=== PATIENT | male | born 1935 | race Caucasian/White ===

== ENCOUNTER 2017-01-07 11:26 | Emergency (ER) | payer OTHER, BC ==
[~2017-01-07] VITALS: Ht 180.3 cm; Wt 98.9 kg
[~2017-01-07 11:26] MED LIST: CIPR-261 PO; DOXE10CA2 PO; GABA600T PO; [UNRECOGNIZED DRUG - OTHER] PO; [UNRECOGNIZED DRUG - OTHER] PO
[2017-01-07 11:33] VITALS: BP 127/62; PULSE 85; RESP 15; TEMP 96.9; O2SAT 97
--- NOTE | 2017-01-07 11:40 | NUR ---
Patient to ER bed 2 to gown for evaluation. Side rails up. Report given to Domingo GALLEGOS.
--- NOTE | 2017-01-07 11:45 | NUR ---
Pt brought by partner, [email or web address], pt was sent from [facility] office for DVT, VS WNL, skin pink and warm, pt denies pain, no discoloration noted, skin pink and warm, cap refill <3, VSS.
--- NOTE | 2017-01-07 11:50 | NUR ---
ER at bedside examining patient.
[2017-01-07 12:00] LABS: BASOPHILS % (AUTO) 0.5 % (0.0-2.0); EOSINOPHILS # (AUTO) 0.2 K/uL (0.0-0.4); EOSINOPHILS % (AUTO) 3.4 % (0.0-4.0); HEMATOCRIT 43.8 % (36-54); HEMOGLOBIN 14.6 g/dL (14.0-18.0); LYMPHOCYTES # (AUTO) 1.2 K/uL (1.0-5.5); LYMPHOCYTES % (AUTO) 24.5 % (20.5-51.5); MEAN CORPUSCULAR HEMOGLOBIN 30 pg (27-31); MEAN CORPUSCULAR HGB CONC 33 % (32-36); MEAN CORPUSCULAR VOLUME 91 fL (79.0-98.0); MONOCYTES # (AUTO) 0.6 K/uL (0.0-1.0); MONOCYTES % (AUTO) 13.3 % (1.7-9.3); NEUTROPHILS # (AUTO) 2.8 K/uL (1.8-7.7); NEUTROPHILS % (AUTO) 58.3 % (40.0-70.0); PLATELET COUNT (AUTO) 220 K/uL (130-430); RED BLOOD CELL COUNT(AUTO) 4.82 MIL/uL (4.2-6.2); RED CELL DISTRIBUTION WIDTH 12.9 % (9.0-15.0); WHITE BLOOD COUNT (AUTO) 4.8 K/uL (4.8-10.8)
[2017-01-07 12:08] LABS: ANION GAP 1 (5-15); CALCIUM 9.1 mg/dL (8.4-11.0); CHLORIDE 103 mmol/L (98-107); CREATININE 1.05 mg/dL (0.55-1.30); GLUCOSE 111 mg/dL (70-99); POTASSIUM 3.8 mmol/L (3.5-5.1); SODIUM SERUM 139 mmol/L (136-145); UREA NITROGEN, BLOOD 19 mg/dL (8-21)
[2017-01-07 12:12] LABS: PROTHROMBIN TIME 10.5 SECS (9.5-12.5)
[2017-01-07 12:14] LABS: ALANINE AMINOTRANSFERASE 39 U/L (12-78); ASPARTATE AMINOTRANSFERASE 25 U/L (10-37); TOTAL BILIRUBIN 0.4 mg/dL (0.0-1.0); TOTAL PROTEIN, SERUM 7.3 g/dL (6.4-8.3)
[2017-01-07] MEDS ORDERED: FURO80TA86 PO (12:24)
--- NOTE | 2017-01-07 12:30 | NUR ---
Medication reconciliation completed with information provided by patient. Any prior medication reconciliation on file was reviewed and corrected.
--- NOTE | 2017-01-07 13:30 | NUR ---
Pt continues to deny CP, SOB or pain.
--- NOTE | 2017-01-07 15:00 | NUR ---
spoke with pt's PMD. POC is pt followup w/previously scheduled appt and outpatient medication .
--- NOTE | 2017-01-07 15:03 | NUR ---
Patient given written and verbal discharge instructions and verbalizes understanding. ER MD discussed with patient the results and treatment provided. Given copies of tests performed in ER. Patient in stable condition. ID arm band removed. Rx of XARELTO given. Patient educated on pain management and to follow up with PMD. Pain Scale 0. Opportunity for questions provided and answered.
[2017-01-07 15:06] VITALS: BP 128/60; PULSE 80; RESP 16; TEMP 97.4; O2SAT 97
== END 2017-01-07 15:06 | disposition home or self-care (01) ==
LOC: SED 11:26
DX: I82.401 Acute embolism and thrombosis of unspecified deep veins of right lower extremity (principal); Z88.1 Allergy status to other antibiotic agents; Z88.2 Allergy status to sulfonamides
CPT/HCPCS: 36415; 71010; 80053; 85025; 85610-TC; 85730-TC; 93005; 93971; 99285

== ENCOUNTER 2017-04-13 18:53 | Emergency (ER) | payer OTHER, BC ==
[~2017-04-13] VITALS: Ht 180.3 cm; Wt 97.5 kg
[~2017-04-13 18:53] MED LIST changes: -CIPR-261 PO; +FURO80TA86 PO
[2017-04-13 19:08] VITALS: BP_SYST 94
--- NOTE | 2017-04-13 19:12 | NUR ---
Pt placed to ER waiting room in stable condition.
--- NOTE | 2017-04-13 19:43 | NUR ---
Patient to ER bed 4 to gown for evaluation. Side rails up. Report given to Leslye GALLEGOS.
--- NOTE | 2017-04-13 19:45 | NUR ---
Patient reports possible foreign body in left eye with tearing and redness starting today. Denies any pain. No other complaints/injuries per patient or as noted.
--- NOTE | 2017-04-13 19:55 | NUR ---
ER at bedside examining patient.
[2017-04-13] MEDS ORDERED: ERYTHROMYCIN 0.5% EYE OINT 3.5 GM OP ONE (20:15)
[2017-04-13] MEDS ORDERED: PROPARACAINE (OPTHANINE 0.5%) 15 ML DROPS OP ONE (20:15)
--- NOTE | 2017-04-13 21:00 | NUR ---
Patient given written and verbal discharge instructions and verbalizes understanding. ER MD discussed with patient the results and treatment provided. Patient in stable condition. ID arm band removed. Rx of Erythromycin ointment given. Patient educated on pain management and to follow up with PMD. Pain Scale 0/10. Opportunity for questions provided and answered.
[2017-04-13 21:06] VITALS: BP_SYST 94
== END 2017-04-13 21:00 | disposition home or self-care (01) ==
LOC: SED 18:53
DX: H10.9 Unspecified conjunctivitis (principal); Z88.1 Allergy status to other antibiotic agents; Z88.2 Allergy status to sulfonamides; Z85.828 Personal history of other malignant neoplasm of skin
CPT/HCPCS: 99283

== ENCOUNTER 2017-05-07 09:37 | Outpatient (CLI) | payer OTHER, BC | END 2017-05-07 19:56 | disposition home or self-care (01) | LOC: SUS 09:37 | PROVIDERS: ATTEND Specialist | DX: I82.401 Acute embolism and thrombosis of unspecified deep veins of right lower extremity (principal) | CPT/HCPCS: 93971 ==

== ENCOUNTER 2017-08-14 09:24 | Emergency (ER) | payer OTHER, BC ==
[~2017-08-14] VITALS: Ht 180.3 cm; Wt 97.1 kg
[~2017-08-14 09:24] MED LIST changes: +CIPR-261 PO
[2017-08-14 09:28] VITALS: BP 100/56; PULSE 68; RESP 16; TEMP 96.6; O2SAT 97
[2017-08-14 10:37] VITALS: BP 105/61; PULSE 64; RESP 16; TEMP 97.2; O2SAT 98
== END 2017-08-14 10:37 | disposition home or self-care (01) ==
LOC: SED 09:24
DX: S93.505A Unspecified sprain of left lesser toe(s), initial encounter (principal); Z88.1 Allergy status to other antibiotic agents; Z85.828 Personal history of other malignant neoplasm of skin; X58.XXXA Exposure to other specified factors, initial encounter; Y93.89 Activity, other specified; Y92.89 Other specified places as the place of occurrence of the external cause; Y99.8 Other external cause status
CPT/HCPCS: 73630; 99284; J7030

== ENCOUNTER 2017-10-31 09:05 | Outpatient (CLI) | payer OTHER, BC ==
[~2017-10-31 09:05] MED LIST changes: -CIPR-261 PO
== END 2017-10-31 21:19 | disposition home or self-care (01) ==
LOC: SLB 09:05
PROVIDERS: ATTEND Specialist
DX: K52.9 Noninfective gastroenteritis and colitis, unspecified (principal); Z86.010 Personal history of colon polyps
CPT/HCPCS: 87045-TC; 87046; 87177

== ENCOUNTER 2018-03-19 10:46 | Emergency (ER) | payer OTHER, BC ==
[~2018-03-19] VITALS: Ht 180.3 cm; Wt 96.2 kg
[2018-03-19 10:46] VITALS: BP_SYST 141
[2018-03-19] MEDS ORDERED: COLCHICINE 0.6 MG TABLET PO ONE (11:15)
[2018-03-19 11:30] VITALS: BP_SYST 141
== END 2018-03-19 11:30 | disposition home or self-care (01) ==
LOC: SED 10:46
DX: M10.9 Gout, unspecified (principal); Z88.2 Allergy status to sulfonamides; Z88.1 Allergy status to other antibiotic agents; Z85.828 Personal history of other malignant neoplasm of skin
CPT/HCPCS: 99283

== ENCOUNTER 2018-10-27 09:19 | Emergency (ER) | payer OTHER, BC ==
[~2018-10-27] VITALS: Ht 180.3 cm; Wt 93.0 kg
[2018-10-27 09:25] VITALS: BP_SYST 140
[2018-10-27] MEDS ORDERED: ACETAMINOPHEN 500 MG TABLET PO ONE (09:45)
[2018-10-27 10:41] VITALS: BP_SYST 140
== END 2018-10-27 10:41 | disposition home or self-care (01) ==
LOC: SED 09:19
DX: S20.212A Contusion of left front wall of thorax, initial encounter (principal); Z85.828 Personal history of other malignant neoplasm of skin; Z88.1 Allergy status to other antibiotic agents; Z88.2 Allergy status to sulfonamides; Z88.5 Allergy status to narcotic agent; Z88.8 Allergy status to other drugs, medicaments and biological substances; Z79.899 Other long term (current) drug therapy; W01.0XXA Fall on same level from slipping, tripping and stumbling without subsequent striking against object, initial encounter; Y93.89 Activity, other specified; Y92.89 Other specified places as the place of occurrence of the external cause; Y99.8 Other external cause status
CPT/HCPCS: 71100; 99283

== ENCOUNTER 2019-07-27 05:35 | Emergency (ER) | payer OTHER, BC ==
[~2019-07-27] VITALS: Ht 162.6 cm; Wt 96.2 kg
[2019-07-27 05:40] VITALS: BP_SYST 154
--- NOTE | 2019-07-27 05:40 | NUR ---
Placed in room 05 . Placed on cardiac cath lab radiology technologist, blood pressure machine and pulse oximeter. To gown for exam. Side rails up.
--- NOTE | 2019-07-27 05:42 | NUR ---
Pt was given 324 mg of aspirin PO by medics and Nitro 0.4mg x1, pt denies chest pain at this time.
[2019-07-27] MEDS ORDERED: ASPIRIN 81 MG TAB.CHEW PO ONE (05:45)
--- NOTE | 2019-07-27 05:45 | NUR ---
Dr. Snatos bedside for Pt eval
--- NOTE | 2019-07-27 06:10 | NUR ---
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 No other complaints and or injuries noted. VSS no s/s of acute distress. Resting on gurney rails up
[2019-07-27 06:13] LABS: BASOPHILS # (AUTO) 0.1 K/uL (0.0-0.2); BASOPHILS % (AUTO) 0.4 % (0.0-2.0); EOSINOPHILS % (AUTO) 0.3 % (0.0-4.0); HEMOGLOBIN 14.5 g/dL (14.0-18.0); LYMPHOCYTES # (AUTO) 0.9 K/uL (1.0-5.5); MEAN CORPUSCULAR HEMOGLOBIN 33 pg (27-31); MEAN CORPUSCULAR HGB CONC 34 % (32-36); MEAN CORPUSCULAR VOLUME 98 fL (79.0-98.0); MONOCYTES # (AUTO) 0.9 K/uL (0.0-1.0); MONOCYTES % (AUTO) 6.5 % (1.7-9.3); NEUTROPHILS # (AUTO) 12.6 K/uL (1.8-7.7); NEUTROPHILS % (AUTO) 86.8 % (40.0-70.0); PLATELET COUNT (AUTO) 193 K/uL (130-430); RED BLOOD CELL COUNT(AUTO) 4.39 MIL/uL (4.2-6.2); RED CELL DISTRIBUTION WIDTH 13.9 % (9.0-15.0); WHITE BLOOD COUNT (AUTO) 14.5 K/uL (4.8-10.8)
[2019-07-27 06:26] LABS: ANION GAP 10 (5-15); CALCIUM 8.9 mg/dL (8.4-11.0); CHLORIDE 105 mmol/L (98-107); CREATININE 1.12 mg/dL (0.55-1.30); GLUCOSE 137 mg/dL (70-99); POTASSIUM 3.7 mmol/L (3.5-5.1); SODIUM SERUM 142 mmol/L (136-145); UREA NITROGEN, BLOOD 16 mg/dL (8-21)
--- NOTE | 2019-07-27 06:30 | NUR ---
Pt consented to having both IV with contrast studies. Paperwork in chart
[2019-07-27 06:33] LABS: ALANINE AMINOTRANSFERASE 28 U/L (12-78); ALBUMIN 3.5 g/dL (3.4-4.8); ASPARTATE AMINOTRANSFERASE 19 U/L (10-37); TOTAL BILIRUBIN 1.4 mg/dL (0.0-1.0)
[2019-07-27 06:44] LABS: INR 1.1 (0.80-1.20); PROTHROMBIN TIME 11.3 SECS (9.5-12.5)
--- NOTE | 2019-07-27 09:10 | NUR ---
Patient transported to radiology via hospital bed, accompanied by senior service technician.
--- NOTE | 2019-07-27 09:30 | NUR ---
Returns to ER department from radiology. Placed on laboratory monitor, blood pressure machine and pulse oximeter.
--- NOTE | 2019-07-27 10:00 | NUR ---
Patient given written and verbal discharge instructions and verbalizes understanding. ER Dr. Balderrama discussed with patient the results and treatment provided. Patient in stable condition. ID arm band removed. IV catheter removed intact and dressing applied, no active bleeding. No Rx given. Patient educated on pain management and to follow up with PMD. Pain Scale 0/10. Opportunity for questions provided and answered. Medication side effect fact sheet provided.
[2019-07-27] MEDS ORDERED: IOHEXOL 350 mgI/mL, 150 ML INFUS..BTL IV ONE (10:06)
[2019-07-27 11:21] VITALS: BP_SYST 145
== END 2019-07-27 11:21 | disposition home or self-care (01) ==
LOC: SED 05:35
DX: R07.89 Other chest pain (principal); R10.10 Upper abdominal pain, unspecified; F17.200 Nicotine dependence, unspecified, uncomplicated; Z88.1 Allergy status to other antibiotic agents; Z88.2 Allergy status to sulfonamides; Z88.5 Allergy status to narcotic agent; Z88.8 Allergy status to other drugs, medicaments and biological substances; Z85.828 Personal history of other malignant neoplasm of skin
CPT/HCPCS: 36415; 71275; 74175; 80053; 83880; 84484; 85025; 85379; 85610; 85730; 99284; Q9967

== ENCOUNTER 2020-01-17 09:35 | Emergency (ER) | payer OTHER, BC ==
[~2020-01-17] VITALS: Ht 180.3 cm; Wt 96.2 kg
--- NOTE | 2020-01-17 09:50 | NUR ---
PATIENT TO ER #3
[2020-01-17] MEDS ORDERED: RIVA20TA PO (09:58)
[2020-01-17] MEDS ORDERED: CHOL50004 PO (09:58)
[2020-01-17] MEDS ORDERED: CYAN250010 PO (09:58)
[2020-01-17] MEDS ORDERED: ALLO100T PO (09:58)
[2020-01-17] MEDS ORDERED: POTA20TA83 PO (09:58)
[2020-01-17 09:59] VITALS: BP_SYST 103
[2020-01-17] MEDS ORDERED: ALBUTEROL SULFATE 0.083% 2.5 MG/3 ML VIAL.NEB INH ONE (10:00)
[2020-01-17] MEDS ORDERED: PREDNISONE 20 MG TABLET PO ONE (10:00)
[2020-01-17] MEDS ORDERED: IPRATROPIUM BROM 0.5 MG/2.5 ML VIAL.NEB (ATROVENT) INH ONE (10:00)
--- NOTE | 2020-01-17 10:10 | NUR ---
Patient brought in self to ED with complaints of cough x 3 weeks. Patient reported to have been taking z-gerard and nasal spray with no relief. Patient also reported to have received the flu shot this season. Patient complains of discomfort on chest area when coughing but is not in any distress.
[2020-01-17 10:30] LABS: BASOPHILS % (AUTO) 0.9 % (0.0-2.0); EOSINOPHILS # (AUTO) 0.1 K/uL (0.0-0.4); EOSINOPHILS % (AUTO) 2.3 % (0.0-4.0); HEMATOCRIT 43.2 % (36-54); HEMOGLOBIN 14.5 g/dL (14.0-18.0); LYMPHOCYTES # (AUTO) 0.8 K/uL (1.0-5.5); LYMPHOCYTES % (AUTO) 22.6 % (20.5-51.5); MEAN CORPUSCULAR HEMOGLOBIN 33 pg (27-31); MEAN CORPUSCULAR HGB CONC 33 % (32-36); MEAN CORPUSCULAR VOLUME 97 fL (79.0-98.0); MONOCYTES # (AUTO) 0.7 K/uL (0.0-1.0); MONOCYTES % (AUTO) 19.3 % (1.7-9.3); NEUTROPHILS # (AUTO) 1.9 K/uL (1.8-7.7); NEUTROPHILS % (AUTO) 54.9 % (40.0-70.0); PLATELET COUNT (AUTO) 163 K/uL (130-430); RED BLOOD CELL COUNT(AUTO) 4.45 MIL/uL (4.2-6.2); RED CELL DISTRIBUTION WIDTH 13.2 % (9.0-15.0); WHITE BLOOD COUNT (AUTO) 3.4 K/uL (4.8-10.8)
[2020-01-17 10:36] LABS: ANION GAP 8 (5-15); CALCIUM 8.8 mg/dL (8.4-11.0); CHLORIDE 99 mmol/L (98-107); CREATININE 1.15 mg/dL (0.55-1.30); GLUCOSE 106 mg/dL (70-99); POTASSIUM 3.5 mmol/L (3.5-5.1); SODIUM SERUM 140 mmol/L (136-145); UREA NITROGEN, BLOOD 19 mg/dL (8-21)
[2020-01-17 10:46] LABS: ALANINE AMINOTRANSFERASE 51 U/L (12-78); ALBUMIN 3.6 g/dL (3.4-4.8); ASPARTATE AMINOTRANSFERASE 45 U/L (10-37); TOTAL BILIRUBIN 0.6 mg/dL (0.0-1.0)
[2020-01-17 11:43] VITALS: BP_SYST 116
--- NOTE | 2020-01-17 11:43 | NUR ---
Patient given written and verbal discharge instructions and verbalizes understanding. ER MD discussed with patient the results and treatment provided. Patient in stable condition. ID arm band removed. Rx of augmentin, albuterol, and prednisolone given. Patient educated on pain management and to follow up with PMD. Pain Scale 0/10.Opportunity for questions provided and answered. Medication side effect fact sheet provided.
[2020-01-17] MEDS ORDERED: NS 500 ML IV ONE (13:00)
== END 2020-01-17 11:43 | disposition home or self-care (01) ==
LOC: SED 09:35
DX: J44.9 Chronic obstructive pulmonary disease, unspecified (principal); H10.9 Unspecified conjunctivitis; Z88.1 Allergy status to other antibiotic agents; Z88.5 Allergy status to narcotic agent; Z88.8 Allergy status to other drugs, medicaments and biological substances; Z79.899 Other long term (current) drug therapy
CPT/HCPCS: 36415; 71045; 80053; 83880; 84484; 85025; 86710; 93005; 94640; 99285; J7512; J7613

== ENCOUNTER 2020-05-13 08:55 | Emergency (ER) | payer OTHER, BC ==
[~2020-05-13] VITALS: Ht 177.8 cm; Wt 94.3 kg
[~2020-05-13 08:55] MED LIST changes: +ALLO100T PO; +CHOL50004 PO; +CYAN250010 PO; -DOXE10CA2 PO; +POTA20TA83 PO; +RIVA20TA PO
[2020-05-13 09:00] VITALS: BP_SYST 129
--- NOTE | 2020-05-13 09:10 | NUR ---
BROUGHT BACK TO BED #6 AND TRIAGED, REPORT GIVEN TO JULIAN
--- NOTE | 2020-05-13 09:51 | NUR ---
ER Dr. Obregon at bedside examining patient.
--- NOTE | 2020-05-13 11:05 | NUR ---
Patient transported to radiology via wheelchair, accompanied by staff.
--- NOTE | 2020-05-13 12:25 | NUR ---
Patient given written and verbal discharge instructions and verbalizes understanding. ER MD discussed with patient the results and treatment provided. Patient in stable condition. ID arm band removed. No prescriptions given. Patient educated on pain management and to follow up with PMD. Pain Scale 0. Opportunity for questions provided and answered. Medication side effect fact sheet provided.
[2020-05-13 12:26] VITALS: BP_SYST 129
== END 2020-05-13 12:25 | disposition home or self-care (01) ==
LOC: SED 08:55
DX: S20.212A Contusion of left front wall of thorax, initial encounter (principal); S00.511A Abrasion of lip, initial encounter; R51 Headache; M25.562 Pain in left knee; M79.642 Pain in left hand; I71.9 Aortic aneurysm of unspecified site, without rupture; Z88.1 Allergy status to other antibiotic agents; Z88.2 Allergy status to sulfonamides; Z88.5 Allergy status to narcotic agent; Z79.899 Other long term (current) drug therapy; Z85.828 Personal history of other malignant neoplasm of skin; W18.39XA Other fall on same level, initial encounter; Y93.89 Activity, other specified; Y92.89 Other specified places as the place of occurrence of the external cause; Y99.8 Other external cause status
CPT/HCPCS: 70450-TC; 71250-TC; 99285

== ENCOUNTER 2020-09-06 09:06 | Emergency (ER) | payer OTHER, BC ==
[~2020-09-06] VITALS: Ht 180.3 cm; Wt 95.3 kg
[2020-09-06 09:15] VITALS: BP_SYST 115
--- NOTE | 2020-09-06 09:15 | NUR ---
Patient to ER bed 06 to gown for evaluation. Side rails up.
--- NOTE | 2020-09-06 09:16 | NUR ---
Patient arrived in the ED c/o REDNESS, SWELLING AND TENDER TO TOUCH ON THE RIGHT LOWER LEG for the last 2 WEEKS. Denied any chest pain or shortness of breath. Denied any fevers, chills, nausea or vomiting. Patient is alert and oriented x4, respirations even and unlabored, speaking in full sentences, and ambulating with a steady gait. VSS, pain level 76/10. Informed of the approximate wait time. Instructed to notify ED staff for any changes in condition or worsening of symptoms while waiting to be seen by an ED provider. Patient verbalized understanding.
--- NOTE | 2020-09-06 09:53 | NUR ---
ER Dr. Naik at bedside examining patient.
--- NOTE | 2020-09-06 10:07 | NUR ---
Patient given written and verbal discharge instructions and verbalizes understanding. ER MD discussed with patient the results and treatment provided. Patient in stable condition. ID arm band removed. Rx of Clindamycin given. Patient educated on pain management and to follow up with PMD. Pain Scale 0/10. Opportunity for questions provided and answered. Medication side effect fact sheet provided.
[2020-09-06 10:08] VITALS: BP_SYST 115
== END 2020-09-06 10:07 | disposition home or self-care (01) ==
LOC: SED 09:06
DX: L03.115 Cellulitis of right lower limb (principal); F17.210 Nicotine dependence, cigarettes, uncomplicated; Z85.828 Personal history of other malignant neoplasm of skin; Z79.899 Other long term (current) drug therapy; Z88.1 Allergy status to other antibiotic agents; Z88.2 Allergy status to sulfonamides; Z88.6 Allergy status to analgesic agent
CPT/HCPCS: 99283

== ENCOUNTER 2020-11-17 09:30 | Outpatient (CLI) | payer OTHER, BC | END 2020-11-17 20:30 | disposition home or self-care (01) | LOC: SCT 09:30 | DX: I71.2 Thoracic aortic aneurysm, without rupture (principal) | CPT/HCPCS: 71250-TC; 76376 ==

== ENCOUNTER 2020-11-20 13:16 | Emergency (ER) | payer OTHER, BC ==
[~2020-11-20] VITALS: Ht 177.8 cm; Wt 94.3 kg
[2020-11-20 13:20] VITALS: BP_SYST 122
--- NOTE | 2020-11-20 13:43 | NUR ---
TRIAGED IN TENT
--- NOTE | 2020-11-20 14:35 | NUR ---
DR. COCHRAN EXAMINING PT
[2020-11-20 15:25] VITALS: BP_SYST 122
--- NOTE | 2020-11-20 15:25 | NUR ---
Patient given written and verbal discharge instructions and verbalizes understanding. ER MD discussed with patient the results and treatment provided. Patient in stable condition. ID arm band removed. Rx of FLOMAX given. Patient educated on pain management and to follow up with PMD. Pain Scale 0 Opportunity for questions provided and answered. Medication side effect fact sheet provided.
== END 2020-11-20 15:25 | disposition home or self-care (01) ==
LOC: SED 13:16
DX: R31.9 Hematuria, unspecified (principal); Z88.1 Allergy status to other antibiotic agents; Z88.5 Allergy status to narcotic agent; Z79.899 Other long term (current) drug therapy
CPT/HCPCS: 81002; 99283

== ENCOUNTER 2021-03-12 08:14 | Inpatient (IN) | payer OTHER, BC ==
[~2021-03-12] VITALS: Ht 177.8 cm; Wt 95.3 kg
[2021-03-12 08:14] VITALS: BP_SYST 111
[~2021-03-12 08:14] MED LIST changes: +HYDR-3917 PO
[2021-03-12] MEDS ORDERED: VANCOMYCIN HCL 1 MG in D5W 250 ML IV ONE (08:45)
[2021-03-12] MEDS ORDERED: NS 500 ML IV SCH (08:45)
[2021-03-12] MEDS ORDERED: VANCOMYCIN HCL 1000 MG/VIAL IV ONE (08:55)
[2021-03-12 09:06] LABS: BASOPHILS # (AUTO) 0.2 K/uL (0.0-0.2); BASOPHILS % (AUTO) 2.6 % (0.0-2.0); EOSINOPHILS # (AUTO) 0.1 K/uL (0.0-0.4); EOSINOPHILS % (AUTO) 1.5 % (0.0-4.0); HEMATOCRIT 43.7 % (36-54); HEMOGLOBIN 14.6 g/dL (14.0-18.0); LYMPHOCYTES # (AUTO) 0.8 K/uL (1.0-5.5); LYMPHOCYTES % (AUTO) 11.7 % (20.5-51.5); MEAN CORPUSCULAR HEMOGLOBIN 33 pg (27-31); MEAN CORPUSCULAR HGB CONC 34 % (32-36); MEAN CORPUSCULAR VOLUME 98 fL (79.0-98.0); MONOCYTES # (AUTO) 0.6 K/uL (0.0-1.0); MONOCYTES % (AUTO) 8.9 % (1.7-9.3); NEUTROPHILS # (AUTO) 5.2 K/uL (1.8-7.7); NEUTROPHILS % (AUTO) 75.3 % (40.0-70.0); PLATELET COUNT (AUTO) 257 K/uL (130-430); RED BLOOD CELL COUNT(AUTO) 4.46 MIL/uL (4.2-6.2); RED CELL DISTRIBUTION WIDTH 13.3 % (9.0-15.0); WHITE BLOOD COUNT (AUTO) 6.9 K/uL (4.8-10.8)
[2021-03-12 09:25] LABS: ANION GAP 10 (5-15); CALCIUM 9.1 mg/dL (8.4-11.0); CHLORIDE 101 mmol/L (98-107); CREATININE 1.09 mg/dL (0.55-1.30); GLUCOSE 108 mg/dL (70-99); POTASSIUM 3.2 mmol/L (3.5-5.1); SODIUM SERUM 140 mmol/L (136-145); UREA NITROGEN, BLOOD 21 mg/dL (8-21)
[2021-03-12 09:30] LABS: INR 1.3 (0.80-1.20); PROTHROMBIN TIME 13.5 SECS (9.5-12.5)
[2021-03-12 09:31] LABS: ALANINE AMINOTRANSFERASE 24 U/L (12-78); ALBUMIN 3.5 g/dL (3.4-4.8); ASPARTATE AMINOTRANSFERASE 19 U/L (10-37); TOTAL BILIRUBIN 1.1 mg/dL (0.0-1.0)
[2021-03-12 09:37] LABS: C-REACTIVE PROTEIN QUANT 7.4 mg/dL (0-0.5)
[2021-03-12 09:39] LABS: ERYTHROCYTE SEDIMENTATION RATE 17 MM/HR (0-15)
[2021-03-12] MEDS ORDERED: CEFEPIME 2 GM in D5W 100 ML IV ONE (10:45)
[2021-03-12] MEDS ORDERED: KCL 10 mEq in 50 mL (PREMIX) 50 ML IV ONE (13:30)
[2021-03-12] MEDS ORDERED: PROPOFOL 200MG/ 20ML VIAL (DIPRIVAN) IV ONE (14:40)
[2021-03-12] MEDS ORDERED: SEVOFLURANE 15 MIN GAS INH ONE (14:40)
[2021-03-12] MEDS ORDERED: KETOROLAC TROMETHAMINE 30 MG VIAL IVP ONE (14:40)
[2021-03-12] MEDS ORDERED: NS IRRIG SOLN 1000 ML IR ONE (14:40)
[2021-03-12] MEDS ORDERED: ONDANSETRON HCL 4 MG/2 ML VIAL IVP ONE (14:40)
[2021-03-12] MEDS ORDERED: D5LR 1,000 ML IV.SOLN IV ONE (14:40)
[2021-03-12 15:18] VITALS: BP_SYST 114
[2021-03-12] MEDS ORDERED: ONDANSETRON HCL 4 MG/2 ML VIAL IVP PRN (17:45)
[2021-03-12] MEDS ORDERED: NALOXONE HCL 0.4 MG/ML AMP (NARCAN) IVP PRN ×2 (17:45)
[2021-03-12] MEDS ORDERED: HYDROcodone/ACETAMIN 10-325 MG TAB PO PRN (17:45)
[2021-03-12] MEDS ORDERED: HYDROcodone/ACETAMIN 5-325 MG TAB (NORCO/ VICODIN) PO PRN (17:45)
[2021-03-12] MEDS ORDERED: LORazepam 2 MG/ML VIAL IVP PRN (17:45)
[2021-03-12 20:18] VITALS: BP_SYST 144
[2021-03-12] MEDS ORDERED: GABAPENTIN 300 MG CAPSULE PO ONE (20:30)
[2021-03-12] MEDS: prednisoLONE 1% OPHTHALMIC SUSPN 5 ML OP SCH (21:00)
[2021-03-12] MEDS: CHOLECALCIFEROL (VITAMIN D3) 5,000 UNIT TABLET PO SCH (21:23)
[2021-03-12] MEDS: NORMAL SALINE 5 ML DISP.SYRIN IVF SCH (21:24)
[2021-03-13 00:12] VITALS: BP_SYST 122
[2021-03-13] MEDS: NORMAL SALINE 5 ML DISP.SYRIN IVF SCH ×3 (05:43→22:21)
[2021-03-13 06:28] LABS: BASOPHILS % (AUTO) 0.6 % (0.0-2.0); EOSINOPHILS # (AUTO) 0.2 K/uL (0.0-0.4); EOSINOPHILS % (AUTO) 3.6 % (0.0-4.0); HEMATOCRIT 37.5 % (36-54); HEMOGLOBIN 12.5 g/dL (14.0-18.0); LYMPHOCYTES % (AUTO) 17.4 % (20.5-51.5); MEAN CORPUSCULAR HEMOGLOBIN 33 pg (27-31); MEAN CORPUSCULAR HGB CONC 33 % (32-36); MEAN CORPUSCULAR VOLUME 98 fL (79.0-98.0); MONOCYTES # (AUTO) 0.7 K/uL (0.0-1.0); MONOCYTES % (AUTO) 12.5 % (1.7-9.3); NEUTROPHILS # (AUTO) 3.9 K/uL (1.8-7.7); NEUTROPHILS % (AUTO) 65.9 % (40.0-70.0); PLATELET COUNT (AUTO) 230 K/uL (130-430); RED BLOOD CELL COUNT(AUTO) 3.81 MIL/uL (4.2-6.2); RED CELL DISTRIBUTION WIDTH 13.2 % (9.0-15.0); WHITE BLOOD COUNT (AUTO) 5.9 K/uL (4.8-10.8)
[2021-03-13 06:44] LABS: ALANINE AMINOTRANSFERASE 20 U/L (12-78); ALBUMIN 2.7 g/dL (3.4-4.8); ANION GAP 7 (5-15); ASPARTATE AMINOTRANSFERASE 20 U/L (10-37); CALCIUM 8.8 mg/dL (8.4-11.0); CHLORIDE 105 mmol/L (98-107); CREATININE 0.98 mg/dL (0.55-1.30); GLUCOSE 93 mg/dL (70-99); PHOSPHORUS 3.7 mg/dL (2.7-4.5); POTASSIUM 3.7 mmol/L (3.5-5.1); SODIUM SERUM 140 mmol/L (136-145); TOTAL BILIRUBIN 0.8 mg/dL (0.0-1.0); UREA NITROGEN, BLOOD 18 mg/dL (8-21)
[2021-03-13 08:00] VITALS: BP_SYST 107
[2021-03-13] MEDS ORDERED: GABAPENTIN 300 MG CAPSULE PO SCH (09:00)
[2021-03-13] MEDS: LORATADINE 10 MG TABLET PO SCH (09:09)
[2021-03-13] MEDS: POTASSIUM CHLORIDE 20 MEQ TAB.PRT.SR PO SCH (09:10)
[2021-03-13] MEDS: CYANOCOBALAMIN 1000 mCg TABLET PO SCH (09:10)
[2021-03-13] MEDS: CEFEPIME 2 GM in D5W 100 ML IV SCH (09:10)
[2021-03-13] MEDS: FUROSEMIDE 80 MG TABLET PO SCH (09:10)
[2021-03-13] MEDS: ALLOPURINOL 100 MG TABLET (ZYLOPRIM) PO SCH (09:10)
[2021-03-13 14:10] VITALS: BP_SYST 97
[2021-03-13 16:00] VITALS: BP_SYST 108
[2021-03-13] MEDS: ACETAMINOPHEN 325 MG TABLET PO PRN ×2 (16:28→17:58)
[2021-03-13] MEDS: RIVAROXABAN 10 MG TABLET PO SCH (17:59)
[2021-03-13 21:00] VITALS: BP_SYST 125
[2021-03-13] MEDS: CHOLECALCIFEROL (VITAMIN D3) 5,000 UNIT TABLET PO SCH (22:19)
[2021-03-13] MEDS: GABAPENTIN 300 MG CAPSULE PO SCH (22:19)
[2021-03-13] MEDS: prednisoLONE 1% OPHTHALMIC SUSPN 5 ML OP SCH (22:20)
[2021-03-14 00:24] VITALS: BP_SYST 112
[2021-03-14] MEDS ORDERED: OXYMETAZOLINE HCL 0.05% NASAL SPRAY NS PRN (02:00)
[2021-03-14] MEDS: NORMAL SALINE 5 ML DISP.SYRIN IVF SCH ×3 (06:21→20:57)
[2021-03-14 06:24] LABS: BASOPHILS % (AUTO) 0.5 % (0.0-2.0); EOSINOPHILS # (AUTO) 0.2 K/uL (0.0-0.4); EOSINOPHILS % (AUTO) 4.5 % (0.0-4.0); HEMOGLOBIN 13.1 g/dL (14.0-18.0); LYMPHOCYTES # (AUTO) 1.2 K/uL (1.0-5.5); LYMPHOCYTES % (AUTO) 24.2 % (20.5-51.5); MEAN CORPUSCULAR HEMOGLOBIN 33 pg (27-31); MEAN CORPUSCULAR HGB CONC 34 % (32-36); MEAN CORPUSCULAR VOLUME 98 fL (79.0-98.0); MONOCYTES # (AUTO) 0.8 K/uL (0.0-1.0); MONOCYTES % (AUTO) 15.6 % (1.7-9.3); NEUTROPHILS # (AUTO) 2.8 K/uL (1.8-7.7); NEUTROPHILS % (AUTO) 55.2 % (40.0-70.0); PLATELET COUNT (AUTO) 240 K/uL (130-430); RED BLOOD CELL COUNT(AUTO) 3.96 MIL/uL (4.2-6.2)
[2021-03-14 06:39] LABS: ANION GAP 5 (5-15); CALCIUM 8.9 mg/dL (8.4-11.0); CHLORIDE 106 mmol/L (98-107); CREATININE 1.07 mg/dL (0.55-1.30); GLUCOSE 100 mg/dL (70-99); POTASSIUM 3.7 mmol/L (3.5-5.1); SODIUM SERUM 143 mmol/L (136-145); UREA NITROGEN, BLOOD 19 mg/dL (8-21)
[2021-03-14 07:15] LABS: ERYTHROCYTE SEDIMENTATION RATE 13 MM/HR (0-15)
[2021-03-14 08:00] VITALS: BP_SYST 109
[2021-03-14] MEDS: FUROSEMIDE 80 MG TABLET PO SCH ×2 (09:00→09:26)
[2021-03-14] MEDS: FLUTICASONE PROPIONATE 50 mCg/SPRAY 16 GM NS SCH (09:00)
[2021-03-14] MEDS: CEFEPIME 2 GM in D5W 100 ML IV SCH (09:25)
[2021-03-14] MEDS: ALLOPURINOL 100 MG TABLET (ZYLOPRIM) PO SCH (09:26)
[2021-03-14] MEDS: POTASSIUM CHLORIDE 20 MEQ TAB.PRT.SR PO SCH (09:26)
[2021-03-14] MEDS: LORATADINE 10 MG TABLET PO SCH (09:27)
[2021-03-14 11:20] VITALS: BP_SYST 106
[2021-03-14 15:15] VITALS: BP_SYST 105
[2021-03-14] MEDS: RIVAROXABAN 10 MG TABLET PO SCH (17:02)
[2021-03-14 20:40] VITALS: BP_SYST 122
[2021-03-14] MEDS: prednisoLONE 1% OPHTHALMIC SUSPN 5 ML OP SCH (20:51)
[2021-03-14] MEDS: GABAPENTIN 300 MG CAPSULE PO SCH (20:53)
[2021-03-14] MEDS: CHOLECALCIFEROL (VITAMIN D3) 5,000 UNIT TABLET PO SCH (20:53)
[2021-03-15 00:10] VITALS: BP_SYST 99
[2021-03-15] MEDS: NORMAL SALINE 5 ML DISP.SYRIN IVF SCH ×3 (06:45→21:16)
[2021-03-15 07:09] LABS: BASOPHILS # (AUTO) 0.1 K/uL (0.0-0.2); EOSINOPHILS # (AUTO) 0.3 K/uL (0.0-0.4); EOSINOPHILS % (AUTO) 5.2 % (0.0-4.0); HEMATOCRIT 37.8 % (36-54); HEMOGLOBIN 12.6 g/dL (14.0-18.0); LYMPHOCYTES # (AUTO) 1.3 K/uL (1.0-5.5); LYMPHOCYTES % (AUTO) 24.6 % (20.5-51.5); MEAN CORPUSCULAR HEMOGLOBIN 33 pg (27-31); MEAN CORPUSCULAR HGB CONC 33 % (32-36); MEAN CORPUSCULAR VOLUME 98 fL (79.0-98.0); MONOCYTES # (AUTO) 0.7 K/uL (0.0-1.0); MONOCYTES % (AUTO) 12.3 % (1.7-9.3); NEUTROPHILS % (AUTO) 56.9 % (40.0-70.0); PLATELET COUNT (AUTO) 237 K/uL (130-430); RED BLOOD CELL COUNT(AUTO) 3.86 MIL/uL (4.2-6.2); RED CELL DISTRIBUTION WIDTH 13.1 % (9.0-15.0); WHITE BLOOD COUNT (AUTO) 5.3 K/uL (4.8-10.8)
[2021-03-15 07:30] LABS: ANION GAP 8 (5-15); CALCIUM 8.8 mg/dL (8.4-11.0); CHLORIDE 107 mmol/L (98-107); CREATININE 1.06 mg/dL (0.55-1.30); GLUCOSE 97 mg/dL (70-99); POTASSIUM 3.9 mmol/L (3.5-5.1); SODIUM SERUM 146 mmol/L (136-145); UREA NITROGEN, BLOOD 18 mg/dL (8-21)
[2021-03-15 08:00] VITALS: BP_SYST 116
[2021-03-15 08:37] LABS: ERYTHROCYTE SEDIMENTATION RATE 14 MM/HR (0-15)
[2021-03-15] MEDS: CYANOCOBALAMIN 1000 mCg TABLET PO SCH (08:59)
[2021-03-15] MEDS: LORATADINE 10 MG TABLET PO SCH (08:59)
[2021-03-15] MEDS: ALLOPURINOL 100 MG TABLET (ZYLOPRIM) PO SCH (08:59)
[2021-03-15] MEDS: CEFEPIME 2 GM in D5W 100 ML IV SCH (09:00)
[2021-03-15] MEDS: POTASSIUM CHLORIDE 20 MEQ TAB.PRT.SR PO SCH (09:00)
[2021-03-15] MEDS: FUROSEMIDE 80 MG TABLET PO SCH (09:00)
[2021-03-15] MEDS: FLUTICASONE PROPIONATE 50 mCg/SPRAY 16 GM NS SCH (09:00)
[2021-03-15 09:21] LABS: C-REACTIVE PROTEIN QUANT 1.9 mg/dL (0-0.5)
[2021-03-15 12:00] VITALS: BP_SYST 95
[2021-03-15] MEDS ORDERED: fentaNYL CITRATE/PF 100 MCG/2 ML AMP IVP PRN (15:30)
[2021-03-15 16:11] VITALS: BP_SYST 102
[2021-03-15] MEDS: RIVAROXABAN 10 MG TABLET PO SCH (17:56)
[2021-03-15 20:00] VITALS: BP_SYST 96
[2021-03-15] MEDS: GABAPENTIN 300 MG CAPSULE PO SCH (21:10)
[2021-03-15] MEDS: CHOLECALCIFEROL (VITAMIN D3) 5,000 UNIT TABLET PO SCH (21:13)
[2021-03-15] MEDS: prednisoLONE 1% OPHTHALMIC SUSPN 5 ML OP SCH (21:15)
[2021-03-16] MEDS: NORMAL SALINE 5 ML DISP.SYRIN IVF SCH ×3 (05:34→21:35)
[2021-03-16 06:44] LABS: BASOPHILS % (AUTO) 0.6 % (0.0-2.0); EOSINOPHILS # (AUTO) 0.3 K/uL (0.0-0.4); EOSINOPHILS % (AUTO) 5.2 % (0.0-4.0); HEMATOCRIT 37.9 % (36-54); HEMOGLOBIN 12.5 g/dL (14.0-18.0); LYMPHOCYTES # (AUTO) 1.2 K/uL (1.0-5.5); LYMPHOCYTES % (AUTO) 21.4 % (20.5-51.5); MEAN CORPUSCULAR HEMOGLOBIN 33 pg (27-31); MEAN CORPUSCULAR HGB CONC 33 % (32-36); MEAN CORPUSCULAR VOLUME 99 fL (79.0-98.0); MONOCYTES # (AUTO) 0.7 K/uL (0.0-1.0); MONOCYTES % (AUTO) 12.8 % (1.7-9.3); NEUTROPHILS # (AUTO) 3.2 K/uL (1.8-7.7); PLATELET COUNT (AUTO) 239 K/uL (130-430); RED BLOOD CELL COUNT(AUTO) 3.82 MIL/uL (4.2-6.2); RED CELL DISTRIBUTION WIDTH 13.3 % (9.0-15.0); WHITE BLOOD COUNT (AUTO) 5.4 K/uL (4.8-10.8)
[2021-03-16 08:00] VITALS: BP_SYST 108
[2021-03-16 08:35] LABS: ERYTHROCYTE SEDIMENTATION RATE 13 MM/HR (0-15)
[2021-03-16 08:39] LABS: ANION GAP 6 (5-15); CALCIUM 9.1 mg/dL (8.4-11.0); CHLORIDE 108 mmol/L (98-107); CREATININE 1.06 mg/dL (0.55-1.30); GLUCOSE 99 mg/dL (70-99); POTASSIUM 4.6 mmol/L (3.5-5.1); SODIUM SERUM 145 mmol/L (136-145); UREA NITROGEN, BLOOD 18 mg/dL (8-21)
[2021-03-16] MEDS: FLUTICASONE PROPIONATE 50 mCg/SPRAY 16 GM NS SCH (09:00)
[2021-03-16] MEDS: ALLOPURINOL 100 MG TABLET (ZYLOPRIM) PO SCH (09:25)
[2021-03-16] MEDS: LORATADINE 10 MG TABLET PO SCH (09:25)
[2021-03-16] MEDS: POTASSIUM CHLORIDE 20 MEQ TAB.PRT.SR PO SCH (09:25)
[2021-03-16] MEDS: CEFEPIME 2 GM in D5W 100 ML IV SCH (09:26)
[2021-03-16] MEDS: FUROSEMIDE 80 MG TABLET PO SCH (09:26)
[2021-03-16 09:37] LABS: C-REACTIVE PROTEIN QUANT 1.3 mg/dL (0-0.5)
[2021-03-16 12:29] VITALS: BP_SYST 119
[2021-03-16 16:36] VITALS: BP_SYST 126
[2021-03-16] MEDS: RIVAROXABAN 10 MG TABLET PO SCH (17:47)
[2021-03-16] MEDS: ACETAMINOPHEN 325 MG TABLET PO PRN (19:52)
[2021-03-16 19:55] VITALS: BP_SYST 107
[2021-03-16] MEDS ORDERED: DOCUSATE SODIUM 100 MG CAPSULE PO SCH (21:00)
[2021-03-16] MEDS: GABAPENTIN 300 MG CAPSULE PO SCH (21:32)
[2021-03-16] MEDS: CHOLECALCIFEROL (VITAMIN D3) 5,000 UNIT TABLET PO SCH (21:32)
[2021-03-16] MEDS: prednisoLONE 1% OPHTHALMIC SUSPN 5 ML OP SCH (21:33)
[2021-03-17 02:22] VITALS: BP_SYST 90
[2021-03-17] MEDS: NORMAL SALINE 5 ML DISP.SYRIN IVF SCH (05:37)
[2021-03-17 06:28] LABS: BASOPHILS % (AUTO) 0.9 % (0.0-2.0); EOSINOPHILS # (AUTO) 0.4 K/uL (0.0-0.4); EOSINOPHILS % (AUTO) 7.3 % (0.0-4.0); HEMOGLOBIN 12.4 g/dL (14.0-18.0); LYMPHOCYTES # (AUTO) 1.4 K/uL (1.0-5.5); LYMPHOCYTES % (AUTO) 26.7 % (20.5-51.5); MEAN CORPUSCULAR HEMOGLOBIN 33 pg (27-31); MEAN CORPUSCULAR HGB CONC 34 % (32-36); MEAN CORPUSCULAR VOLUME 98 fL (79.0-98.0); MONOCYTES # (AUTO) 0.8 K/uL (0.0-1.0); MONOCYTES % (AUTO) 15.5 % (1.7-9.3); NEUTROPHILS # (AUTO) 2.5 K/uL (1.8-7.7); NEUTROPHILS % (AUTO) 49.6 % (40.0-70.0); PLATELET COUNT (AUTO) 240 K/uL (130-430); RED BLOOD CELL COUNT(AUTO) 3.77 MIL/uL (4.2-6.2); RED CELL DISTRIBUTION WIDTH 13.2 % (9.0-15.0); WHITE BLOOD COUNT (AUTO) 5.1 K/uL (4.8-10.8)
[2021-03-17 08:00] VITALS: BP_SYST 115
[2021-03-17 08:02] LABS: ALANINE AMINOTRANSFERASE 25 U/L (12-78); ALBUMIN 2.7 g/dL (3.4-4.8); ANION GAP 5 (5-15); ASPARTATE AMINOTRANSFERASE 25 U/L (10-37); CALCIUM 8.7 mg/dL (8.4-11.0); CHLORIDE 110 mmol/L (98-107); CREATININE 1.06 mg/dL (0.55-1.30); GLUCOSE 95 mg/dL (70-99); POTASSIUM 4.6 mmol/L (3.5-5.1); SODIUM SERUM 146 mmol/L (136-145); TOTAL BILIRUBIN 0.4 mg/dL (0.0-1.0); UREA NITROGEN, BLOOD 16 mg/dL (8-21)
[2021-03-17] MEDS: FUROSEMIDE 80 MG TABLET PO SCH (08:32)
[2021-03-17] MEDS: CEFEPIME 2 GM in D5W 100 ML IV SCH (08:32)
[2021-03-17] MEDS: ALLOPURINOL 100 MG TABLET (ZYLOPRIM) PO SCH (08:32)
[2021-03-17] MEDS: POTASSIUM CHLORIDE 20 MEQ TAB.PRT.SR PO SCH (08:33)
[2021-03-17] MEDS: FLUTICASONE PROPIONATE 50 mCg/SPRAY 16 GM NS SCH (08:33)
[2021-03-17] MEDS: LORATADINE 10 MG TABLET PO SCH (08:33)
[2021-03-17] MEDS: CYANOCOBALAMIN 1000 mCg TABLET PO SCH (08:33)
[2021-03-17 10:36] LABS: C-REACTIVE PROTEIN QUANT 0.9 mg/dL (0-0.5)
[2021-03-17 10:40] LABS: ERYTHROCYTE SEDIMENTATION RATE 12 MM/HR (0-15)
[2021-03-17 12:00] VITALS: BP_SYST 115
[2021-03-17] MEDS ORDERED: FLUT16SP16 NS (13:13)
[2021-03-17] MEDS ORDERED: CEPH250C PO (13:13)
[2021-03-17] MEDS ORDERED: DOCU-144 PO (13:13)
[2021-03-17 14:25] VITALS: BP_SYST 125
[2021-03-17 15:30] VITALS: BP_SYST 107
== END 2021-03-17 15:40 | disposition home or self-care (01) | DRG 920 ==
LOC: SED 08:14 → SMU 13:30
PROVIDERS: ADMIT Preventive Medicine Preventive Medicine/Occupational Environmental Medicine; ATTEND Preventive Medicine Preventive Medicine/Occupational Environmental Medicine
PROC: 0Y9F0ZZ Drainage of Right Knee Region, Open Approach (ICD-10-PCS; principal; 2021-03-15 14:40)
DX: L76.34 Postprocedural seroma of skin and subcutaneous tissue following other procedure (principal); L03.115 Cellulitis of right lower limb; E66.9 Obesity, unspecified; D64.9 Anemia, unspecified; R73.9 Hyperglycemia, unspecified; E88.09 Other disorders of plasma-protein metabolism, not elsewhere classified; E87.6 Hypokalemia; I87.8 Other specified disorders of veins; G62.9 Polyneuropathy, unspecified; E55.9 Vitamin D deficiency, unspecified; G89.29 Other chronic pain; I10 Essential (primary) hypertension; M10.9 Gout, unspecified; I71.2 Thoracic aortic aneurysm, without rupture; Y83.1 Surgical operation with implant of artificial internal device as the cause of abnormal reaction of the patient, or of later complication, without mention of misadventure at the time of the procedure; Z20.822 Contact with and (suspected) exposure to COVID-19; Z96.651 Presence of right artificial knee joint; Z79.01 Long term (current) use of anticoagulants; Z68.30 Body mass index [BMI] 30.0-30.9, adult; Z85.828 Personal history of other malignant neoplasm of skin; Z86.718 Personal history of other venous thrombosis and embolism; Z88.1 Allergy status to other antibiotic agents; Z88.5 Allergy status to narcotic agent; Z88.2 Allergy status to sulfonamides; Z79.899 Other long term (current) drug therapy; Z87.891 Personal history of nicotine dependence; Y92.89 Other specified places as the place of occurrence of the external cause
CPT/HCPCS: 36415; 73590-TC; 73700-TC; 76376; 80048; 80053; 83605; 83735; 84100; 85025; 85610-TC; 85651-TC; 85730-TC; 86140; 87040-TC; 87070; 87070-TC; 87075-TC; 87081; 94010; 96365; 96367; 99285; J0692; J1885; J2405; J2704; J3370; J3480; J7040; J7060; J7120; Q9967

== ENCOUNTER 2021-05-04 09:18 | Outpatient (CLI) | payer OTHER, BC ==
[~2021-05-04 09:18] MED LIST changes: +CEPH250C PO; +DOCU-144 PO; +FLUT16SP16 NS
[2021-05-04 10:50] LABS: ANION GAP 7 (5-15); CALCIUM 9.1 mg/dL (8.4-11.0); CHLORIDE 108 mmol/L (98-107); CREATININE 1.07 mg/dL (0.55-1.30); GLUCOSE 118 mg/dL (70-99); POTASSIUM 4.3 mmol/L (3.5-5.1); SODIUM SERUM 145 mmol/L (136-145); UREA NITROGEN, BLOOD 16 mg/dL (8-21)
[2021-05-04] MEDS ORDERED: IOHEXOL 350 mgI/mL, 150 ML INFUS..BTL IV ONE (11:31)
== END 2021-05-04 20:20 | disposition home or self-care (01) ==
LOC: SCT 09:18
PROVIDERS: ATTEND Orthopaedic Surgery
DX: I71.2 Thoracic aortic aneurysm, without rupture (principal); K76.0 Fatty (change of) liver, not elsewhere classified; N28.1 Cyst of kidney, acquired; I70.0 Atherosclerosis of aorta; K57.30 Diverticulosis of large intestine without perforation or abscess without bleeding; R60.0 Localized edema; M79.89 Other specified soft tissue disorders; I71.4 Abdominal aortic aneurysm, without rupture
CPT/HCPCS: 36415; 71275; 72191; 73700; 74175; 76376; 80048; Q9967

== ENCOUNTER 2021-09-13 08:58 | Emergency (ER) | payer OTHER, BC ==
[~2021-09-13] VITALS: Ht 177.8 cm; Wt 96.2 kg
--- NOTE | 2021-09-13 09:10 | NUR ---
Patient to ER bed 7 to gown for evaluation. Side rails up.
--- NOTE | 2021-09-13 09:15 | NUR ---
Pt walked in to ER with c/o redness, swelling and discharge from penis x5 days, pain 2/10. Denies any fevers or urinary symptoms at this time. V/S stable, no acute distress noted.
[2021-09-13 09:19] VITALS: BP_SYST 107
--- NOTE | 2021-09-13 09:40 | NUR ---
ER Dr. Granda at bedside examining patient.
[2021-09-13] MEDS ORDERED: MUPI15CR12 TP (09:52)
[2021-09-13] MEDS ORDERED: CEPH-548 PO (09:52)
[2021-09-13] MEDS ORDERED: CLOT45CR33 TP (09:52)
--- NOTE | 2021-09-13 10:00 | NUR ---
Patient given written and verbal discharge instructions and verbalizes understanding. ER MD discussed with patient the results and treatment provided. Patient in stable condition. ID arm band removed. Rx of Keflex, Clotrimazole and Mupirocin given. Patient educated on pain management and to follow up with PMD. Pain Scale 0. Opportunity for questions provided and answered. Medication side effect fact sheet provided.
[2021-09-13 10:01] VITALS: BP_SYST 107
== END 2021-09-13 10:00 | disposition home or self-care (01) ==
LOC: SED 08:58
DX: N48.1 Balanitis (principal); I10 Essential (primary) hypertension; Z88.1 Allergy status to other antibiotic agents; Z88.5 Allergy status to narcotic agent; Z88.2 Allergy status to sulfonamides; Z79.899 Other long term (current) drug therapy
CPT/HCPCS: 99283

== ENCOUNTER 2022-02-16 12:58 | Emergency (ER) | payer OTHER, BC ==
[~2022-02-16] VITALS: Ht 177.8 cm; Wt 98.9 kg
[~2022-02-16 12:58] MED LIST changes: +CEPH-548 PO; +CLOT45CR33 TP; +MUPI15CR12 TP; +POTA-198 PO; -POTA20TA83 PO
[2022-02-16 13:10] VITALS: BP_SYST 102
[2022-02-16 15:57] LABS: ANION GAP 6 (5-15); BASOPHILS # (AUTO) 0.1 K/uL (0.0-0.2); BASOPHILS % (AUTO) 0.7 % (0.0-2.0); CALCIUM 9.1 mg/dL (8.4-11.0); CHLORIDE 98 mmol/L (98-107); CREATININE 1.23 mg/dL (0.55-1.30); EOSINOPHILS # (AUTO) 0.1 K/uL (0.0-0.4); EOSINOPHILS % (AUTO) 1.7 % (0.0-4.0); GLUCOSE 107 mg/dL (70-99); HEMATOCRIT 45.5 % (36-54); HEMOGLOBIN 15.2 g/dL (14.0-18.0); LYMPHOCYTES # (AUTO) 1.3 K/uL (1.0-5.5); LYMPHOCYTES % (AUTO) 19.3 % (20.5-51.5); MEAN CORPUSCULAR HEMOGLOBIN 33 pg (27-31); MEAN CORPUSCULAR HGB CONC 33 % (32-36); MEAN CORPUSCULAR VOLUME 98 fL (79.0-98.0); MONOCYTES # (AUTO) 0.7 K/uL (0.0-1.0); MONOCYTES % (AUTO) 10.5 % (1.7-9.3); NEUTROPHILS # (AUTO) 4.6 K/uL (1.8-7.7); NEUTROPHILS % (AUTO) 67.8 % (40.0-70.0); PLATELET COUNT (AUTO) 225 K/uL (130-430); POTASSIUM 3.9 mmol/L (3.5-5.1); RED BLOOD CELL COUNT(AUTO) 4.66 MIL/uL (4.2-6.2); RED CELL DISTRIBUTION WIDTH 13.5 % (9.0-15.0); SODIUM SERUM 134 mmol/L (136-145); UREA NITROGEN, BLOOD 17 mg/dL (8-21); WHITE BLOOD COUNT (AUTO) 6.9 K/uL (4.8-10.8)
[2022-02-16 16:00] LABS: PROTHROMBIN TIME 10.9 SECS (9.5-12.5)
[2022-02-16 16:01] LABS: ALANINE AMINOTRANSFERASE 62 U/L (12-78); AMYLASE 49 U/L (0-100); ASPARTATE AMINOTRANSFERASE 39 U/L (10-37); LIPASE 265 U/L (73-393); TOTAL BILIRUBIN 0.7 mg/dL (0.0-1.0)
[2022-02-16 16:03] LABS: C-REACTIVE PROTEIN QUANT < 0.2 mg/dL (0-0.5)
[2022-02-16 16:54] LABS: BILIRUBIN,URINE NEGATIVE (NEGATIVE); BLOOD, URINE 3+ (NEGATIVE); COLOR,URINE RED (YELLOW); GLUCOSE,URINE NEGATIVE (NEGATIVE); KETONES,URINE NEGATIVE (NEGATIVE); NITRITE, URINE NEGATIVE (NEGATIVE); PH,URINE 5.5 (5.0-8.0); PROTEIN URINE 3+ (NEGATIVE); UROBILINOGEN,URINE 0.2 (0.2-1.0)
[2022-02-16 16:58] LABS: CLARITY/URINE CLOUDY (CLEAR); LEUKOCYTE ESTERASE ,URINE 1+ (NEGATIVE)
[2022-02-16 17:01] LABS: BACTERIA,URINE FEW /HPF (None Seen); MUCUS,URINE None Seen /LPF (None Seen); RBC,URINE >100 /HPF (0-3)
[2022-02-16] MEDS ORDERED: HYDR-3917 PO (17:11)
[2022-02-16] MEDS ORDERED: NITR-85 PO (17:11)
[2022-02-16 17:28] VITALS: BP_SYST 156
== END 2022-02-16 17:28 | disposition home or self-care (01) ==
LOC: SED 12:58
DX: R31.9 Hematuria, unspecified (principal); I10 Essential (primary) hypertension; Z79.2 Long term (current) use of antibiotics; Z88.2 Allergy status to sulfonamides; Z88.1 Allergy status to other antibiotic agents; Z88.5 Allergy status to narcotic agent
CPT/HCPCS: 36415; 76376; 80053; 81000; 82150; 83605; 83690; 85025; 85610-TC; 85730-TC; 86140; 87086; 87186-TC; 99284

== ENCOUNTER 2023-07-18 08:59 | Emergency (ER) | payer OTHER, BC ==
[~2023-07-18] VITALS: Ht 175.3 cm; Wt 104.3 kg
[~2023-07-18 08:59] MED LIST changes: +NITR-85 PO
[2023-07-18 09:08] VITALS: BP_SYST 147; PULSE 108; RESP 16; TEMP 96.8; O2SAT 98
[2023-07-18 09:40] LABS: INFLUENZA TYPE A negative (NEGATIVE); INFLUENZA TYPE B NEGATIVE (NEGATIVE)
[2023-07-18 09:50] LABS: BASOPHILS % (AUTO) 0.8 % (0.0-2.0); EOSINOPHILS # (AUTO) 0.2 K/uL (0.0-0.4); HEMATOCRIT 44.5 % (36-54); HEMOGLOBIN 14.8 g/dL (14.0-18.0); LYMPHOCYTES % (AUTO) 17.2 % (20.5-51.5); MEAN CORPUSCULAR HEMOGLOBIN 32 pg (27-31); MEAN CORPUSCULAR HGB CONC 33 % (32-36); MEAN CORPUSCULAR VOLUME 97 fL (79.0-98.0); MONOCYTES # (AUTO) 0.7 K/uL (0.0-1.0); MONOCYTES % (AUTO) 12.6 % (1.7-9.3); NEUTROPHILS # (AUTO) 3.9 K/uL (1.8-7.7); NEUTROPHILS % (AUTO) 65.4 % (40.0-70.0); PLATELET COUNT (AUTO) 261 K/uL (130-430); RED BLOOD CELL COUNT(AUTO) 4.61 MIL/uL (4.2-6.2); RED CELL DISTRIBUTION WIDTH 14.4 % (9.0-15.0)
[2023-07-18 10:01] LABS: ANION GAP 9 (5-15); CALCIUM 9.3 mg/dL (8.4-11.0); CARBON DIOXIDE 30 mmol/L (23-29); CHLORIDE 102 mmol/L (98-107); CREATININE 1.16 mg/dL (0.55-1.30); GLUCOSE 147 mg/dL (74-106); POTASSIUM 3.8 mmol/L (3.5-5.1); SODIUM SERUM 141 mmol/L (136-145); UREA NITROGEN, BLOOD 13 mg/dL (8-21)
[2023-07-18] MEDS ORDERED: GUAI100S14 PO (10:29)
== END 2023-07-18 10:38 | disposition home or self-care (01) ==
LOC: SED 08:59
DX: R05.9 Cough, unspecified (principal); I10 Essential (primary) hypertension; Z88.1 Allergy status to other antibiotic agents; Z88.2 Allergy status to sulfonamides; Z88.5 Allergy status to narcotic agent; Z85.828 Personal history of other malignant neoplasm of skin; Z79.899 Other long term (current) drug therapy; Z20.822 Contact with and (suspected) exposure to COVID-19
CPT/HCPCS: 36415; 71045; 80048; 83880; 84484; 85025; 85379; 93005; 99285

== ENCOUNTER 2023-08-12 11:48 | Emergency (ER) | payer OTHER, BC ==
[~2023-08-12] VITALS: Ht 152.4 cm; Wt 56.7 kg
[~2023-08-12 11:48] MED LIST changes: +GUAI100S14 PO
[2023-08-12 12:12] VITALS: BP_SYST 136; PULSE 115; RESP 20; TEMP 98.3; O2SAT 98
[2023-08-12] MEDS ORDERED: LIDOCAINE 1% 10 MG/ML, 20 ML MDV INJ ONE (16:00)
[2023-08-12] MEDS ORDERED: NABU-140 PO (16:33)
[2023-08-12 17:07] VITALS: BP_SYST 128; PULSE 95; RESP 18; TEMP 98.3; O2SAT 99
== END 2023-08-12 16:51 | disposition home or self-care (01) ==
LOC: SED 11:48
DX: S63.284A Dislocation of proximal interphalangeal joint of right ring finger, initial encounter (principal); S60.221A Contusion of right hand, initial encounter; I10 Essential (primary) hypertension; Z88.1 Allergy status to other antibiotic agents; Z88.2 Allergy status to sulfonamides; Z88.5 Allergy status to narcotic agent; Z85.828 Personal history of other malignant neoplasm of skin; Z79.899 Other long term (current) drug therapy; W19.XXXA Unspecified fall, initial encounter; Y93.89 Activity, other specified; Y92.89 Other specified places as the place of occurrence of the external cause; Y99.8 Other external cause status
CPT/HCPCS: 99284; 26770; 73130; 73564; J2001

== ENCOUNTER 2023-08-16 09:17 | Outpatient (CLI) | payer OTHER, BC ==
[~2023-08-16 09:17] MED LIST changes: +NABU-140 PO
== END 2023-08-16 18:54 | disposition home or self-care (01) ==
LOC: SRD 09:17
PROVIDERS: ATTEND Internal Medicine Pulmonary Disease
DX: R05.9 Cough, unspecified (principal); M47.816 Spondylosis without myelopathy or radiculopathy, lumbar region
CPT/HCPCS: 71046-TC

== ENCOUNTER 2023-08-27 11:06 | Emergency (ER) | payer OTHER, BC ==
[~2023-08-27] VITALS: Ht 177.8 cm; Wt 102.1 kg
[2023-08-27 11:17] VITALS: BP_SYST 108; PULSE 80; RESP 16; TEMP 97.8; O2SAT 97
[2023-08-27] MEDS ORDERED: MORPHINE SULFATE 10 MG/ML VIAL IM ONE (12:00)
[2023-08-27] MEDS ORDERED: CEPH-548 PO (12:57)
[2023-08-27] MEDS ORDERED: HYDR-3917 PO (12:58)
[2023-08-27 13:27] VITALS: BP_SYST 125; PULSE 86; RESP 17; TEMP 97.3; O2SAT 96
== END 2023-08-27 13:28 | disposition home or self-care (01) ==
LOC: SED 11:06
DX: L03.115 Cellulitis of right lower limb (principal); R22.41 Localized swelling, mass and lump, right lower limb; I10 Essential (primary) hypertension; Z88.1 Allergy status to other antibiotic agents; Z88.2 Allergy status to sulfonamides; Z88.5 Allergy status to narcotic agent; Z85.828 Personal history of other malignant neoplasm of skin; Z79.899 Other long term (current) drug therapy
CPT/HCPCS: 99285; 93971; 96372; J2270

== ENCOUNTER 2023-12-10 09:20 | Emergency (ER) | payer OTHER, BC ==
[~2023-12-10] VITALS: Ht 175.3 cm; Wt 102.1 kg
[2023-12-10 09:31] VITALS: BP_SYST 100; PULSE 103; TEMP 97.6; O2SAT 94
[2023-12-10 12:03] VITALS: BP_SYST 108; PULSE 100; RESP 16; TEMP 98.1; O2SAT 94
== END 2023-12-10 12:00 | disposition home or self-care (01) ==
LOC: SED 09:20
DX: S93.602A Unspecified sprain of left foot, initial encounter (principal); I10 Essential (primary) hypertension; Z88.1 Allergy status to other antibiotic agents; Z88.2 Allergy status to sulfonamides; Z88.5 Allergy status to narcotic agent; Z88.8 Allergy status to other drugs, medicaments and biological substances; Z85.828 Personal history of other malignant neoplasm of skin; Z79.899 Other long term (current) drug therapy; W18.40XA Slipping, tripping and stumbling without falling, unspecified, initial encounter; Y93.89 Activity, other specified; Y92.89 Other specified places as the place of occurrence of the external cause; Y99.8 Other external cause status
CPT/HCPCS: 99283

== ENCOUNTER 2024-02-27 09:23 | Emergency (ER) | payer OTHER, BC ==
[~2024-02-27] VITALS: Ht 175.3 cm; Wt 106.6 kg
[2024-02-27 09:25] VITALS: BP_SYST 139; PULSE 103; RESP 19; TEMP 98; O2SAT 98
[2024-02-27 10:19] LABS: BASOPHILS # (AUTO) 0.1 K/uL (0.0-0.2); EOSINOPHILS # (AUTO) 0.1 K/uL (0.0-0.4); EOSINOPHILS % (AUTO) 2.2 % (0.0-4.0); HEMATOCRIT 41.7 % (36-54); HEMOGLOBIN 14.3 g/dL (14.0-18.0); LYMPHOCYTES # (AUTO) 0.9 K/uL (1.0-5.5); LYMPHOCYTES % (AUTO) 13.3 % (20.5-51.5); MEAN CORPUSCULAR HEMOGLOBIN 31 pg (27-31); MEAN CORPUSCULAR HGB CONC 34 % (32-36); MEAN CORPUSCULAR VOLUME 91 fL (79.0-98.0); MONOCYTES # (AUTO) 0.7 K/uL (0.0-1.0); NEUTROPHILS # (AUTO) 4.8 K/uL (1.8-7.7); NEUTROPHILS % (AUTO) 72.5 % (40.0-70.0); PLATELET COUNT (AUTO) 256 K/uL (130-430); RED BLOOD CELL COUNT(AUTO) 4.59 MIL/uL (4.2-6.2); RED CELL DISTRIBUTION WIDTH 14.5 % (9.0-15.0); WHITE BLOOD COUNT (AUTO) 6.6 K/uL (4.8-10.8)
[2024-02-27 10:30] LABS: ANION GAP 8 (5-15); CALCIUM 8.8 mg/dL (8.4-11.0); CARBON DIOXIDE 32 mmol/L (23-29); CHLORIDE 103 mmol/L (98-107); CREATININE 1.29 mg/dL (0.55-1.30); GLUCOSE 159 mg/dL (74-106); POTASSIUM 3.6 mmol/L (3.5-5.1); SODIUM SERUM 143 mmol/L (136-145); UREA NITROGEN, BLOOD 13 mg/dL (8-21)
[2024-02-27 10:33] LABS: URIC ACID 8.7 mg/dL (2.4-7.0)
[2024-02-27] MEDS ORDERED: MELO-89 PO (10:41)
[2024-02-27] MEDS ORDERED: COLC0.6T67 PO (10:44)
== END 2024-02-27 10:50 | disposition home or self-care (01) ==
LOC: SED 09:23
DX: M79.671 Pain in right foot (principal); I10 Essential (primary) hypertension; Z85.828 Personal history of other malignant neoplasm of skin; Z88.1 Allergy status to other antibiotic agents; Z88.5 Allergy status to narcotic agent; Z88.2 Allergy status to sulfonamides; Z88.8 Allergy status to other drugs, medicaments and biological substances
CPT/HCPCS: 36415; 80048; 84550; 85025; 99284

== ENCOUNTER 2024-03-11 08:52 | Emergency (ER) | payer OTHER, BC ==
[~2024-03-11] VITALS: Ht 175.3 cm; Wt 106.6 kg
[~2024-03-11 08:52] MED LIST changes: +COLC0.6T67 PO; +MELO-89 PO
[2024-03-11 09:01] VITALS: BP_SYST 128; PULSE 100; RESP 17; TEMP 97; O2SAT 97
[2024-03-11 09:11] LABS: BILIRUBIN,URINE NEGATIVE (NEGATIVE); BLOOD, URINE 3+ (NEGATIVE); GLUCOSE,URINE NEGATIVE (NEGATIVE); KETONES,URINE NEGATIVE (NEGATIVE); LEUKOCYTE ESTERASE ,URINE NEGATIVE (NEGATIVE); NITRITE, URINE NEGATIVE (NEGATIVE); PROTEIN URINE NEGATIVE (NEGATIVE); UROBILINOGEN,URINE 0.2 (0.2-1.0)
[2024-03-11 09:23] LABS: CLARITY/URINE SLIGHTLY HAZY (CLEAR)
[2024-03-11 09:24] LABS: COLOR,URINE YELLOW (YELLOW)
[2024-03-11 09:32] LABS: BASOPHILS # (AUTO) 0.1 K/uL (0.0-0.2); BASOPHILS % (AUTO) 1.1 % (0.0-2.0); EOSINOPHILS # (AUTO) 0.2 K/uL (0.0-0.4); EOSINOPHILS % (AUTO) 2.7 % (0.0-4.0); HEMATOCRIT 42.2 % (36-54); HEMOGLOBIN 14.5 g/dL (14.0-18.0); LYMPHOCYTES % (AUTO) 15.4 % (20.5-51.5); MEAN CORPUSCULAR HEMOGLOBIN 31 pg (27-31); MEAN CORPUSCULAR HGB CONC 34 % (32-36); MEAN CORPUSCULAR VOLUME 91 fL (79.0-98.0); MONOCYTES # (AUTO) 0.8 K/uL (0.0-1.0); MONOCYTES % (AUTO) 12.2 % (1.7-9.3); NEUTROPHILS # (AUTO) 4.3 K/uL (1.8-7.7); NEUTROPHILS % (AUTO) 68.6 % (40.0-70.0); PLATELET COUNT (AUTO) 259 K/uL (130-430); RED BLOOD CELL COUNT(AUTO) 4.67 MIL/uL (4.2-6.2); RED CELL DISTRIBUTION WIDTH 14.2 % (9.0-15.0); WHITE BLOOD COUNT (AUTO) 6.2 K/uL (4.8-10.8)
[2024-03-11 09:38] LABS: BACTERIA,URINE RARE /HPF (None Seen); WBC,URINE 0-3 /HPF (0-3)
[2024-03-11 09:43] LABS: ANION GAP 9 (5-15); CALCIUM 9.3 mg/dL (8.4-11.0); CARBON DIOXIDE 30 mmol/L (23-29); CHLORIDE 99 mmol/L (98-107); CREATININE 1.22 mg/dL (0.55-1.30); GLUCOSE 161 mg/dL (74-106); POTASSIUM 3.1 mmol/L (3.5-5.1); SODIUM SERUM 138 mmol/L (136-145); UREA NITROGEN, BLOOD 17 mg/dL (8-21)
[2024-03-11 09:48] LABS: INR 1.3 (0.80-1.20); PROTHROMBIN TIME 13.7 SECS (9.5-12.5)
[2024-03-11] MEDS: POTASSIUM CHLORIDE 20 MEQ/PKT PACKET PO ONE (10:25)
[2024-03-11 10:53] VITALS: BP_SYST 128; PULSE 100; RESP 17; TEMP 97; O2SAT 97
== END 2024-03-11 10:52 | disposition home or self-care (01) ==
LOC: SED 08:52
DX: N28.1 Cyst of kidney, acquired (principal); N20.0 Calculus of kidney; E87.6 Hypokalemia; R31.9 Hematuria, unspecified; I10 Essential (primary) hypertension; Z88.1 Allergy status to other antibiotic agents; Z88.2 Allergy status to sulfonamides; Z88.5 Allergy status to narcotic agent; Z88.8 Allergy status to other drugs, medicaments and biological substances
CPT/HCPCS: 36415; 80048; 81000; 81001; 81015; 85025; 85610; 85730; 99284

== ENCOUNTER 2024-03-19 09:08 | Outpatient (CLI) | payer OTHER, BC ==
[2024-03-19 10:04] LABS: ERYTHROCYTE SEDIMENTATION RATE 11 MM/HR (0-15)
[2024-03-19 10:23] LABS: BASOPHILS # (AUTO) 0.1 K/uL (0.0-0.2); BASOPHILS % (AUTO) 0.9 % (0.0-2.0); EOSINOPHILS # (AUTO) 0.2 K/uL (0.0-0.4); EOSINOPHILS % (AUTO) 2.3 % (0.0-4.0); HEMATOCRIT 40.8 % (36-54); LYMPHOCYTES # (AUTO) 0.6 K/uL (1.0-5.5); MEAN CORPUSCULAR HEMOGLOBIN 31 pg (27-31); MEAN CORPUSCULAR HGB CONC 34 % (32-36); MEAN CORPUSCULAR VOLUME 91 fL (79.0-98.0); MONOCYTES # (AUTO) 0.7 K/uL (0.0-1.0); MONOCYTES % (AUTO) 10.4 % (1.7-9.3); NEUTROPHILS # (AUTO) 5.5 K/uL (1.8-7.7); NEUTROPHILS % (AUTO) 77.4 % (40.0-70.0); PLATELET COUNT (AUTO) 256 K/uL (130-430); RED BLOOD CELL COUNT(AUTO) 4.47 MIL/uL (4.2-6.2)
== END 2024-03-19 18:50 | disposition home or self-care (01) ==
LOC: SLB 09:08
PROVIDERS: ATTEND Podiatrist Primary Podiatric Medicine
DX: M10.071 Idiopathic gout, right ankle and foot (principal); L03.031 Cellulitis of right toe
CPT/HCPCS: 36415; 84550; 85025; 85651

== ENCOUNTER 2024-03-23 08:50 | Emergency (ER) | payer OTHER, BC ==
[~2024-03-23] VITALS: Ht 177.8 cm; Wt 106.6 kg
[2024-03-23 09:21] VITALS: BP_SYST 119; PULSE 100; RESP 18; TEMP 96.9; O2SAT 93
[2024-03-23] MEDS ORDERED: CAPS60CR4 TP (09:32)
[2024-03-23 09:42] VITALS: BP_SYST 118; PULSE 95; RESP 16; TEMP 96.9; O2SAT 95
== END 2024-03-23 09:40 | disposition home or self-care (01) ==
LOC: SED 08:50
DX: M76.62 Achilles tendinitis, left leg (principal); M76.61 Achilles tendinitis, right leg; I87.2 Venous insufficiency (chronic) (peripheral); L30.9 Dermatitis, unspecified; M10.9 Gout, unspecified; I10 Essential (primary) hypertension; Z79.899 Other long term (current) drug therapy; Z79.2 Long term (current) use of antibiotics; Z88.1 Allergy status to other antibiotic agents; Z88.2 Allergy status to sulfonamides; Z88.5 Allergy status to narcotic agent; Z88.8 Allergy status to other drugs, medicaments and biological substances
CPT/HCPCS: 99282

== ENCOUNTER 2024-03-26 21:05 | Observation (INO) | payer OTHER, BC ==
[~2024-03-26] VITALS: Ht 177.8 cm; Wt 105.4 kg
[~2024-03-26 21:05] MED LIST changes: +CAPS60CR4 TP
[2024-03-26 21:20] VITALS: BP_SYST 113; PULSE 117; RESP 16; TEMP 97.9; O2SAT 93
[2024-03-27] MEDS: ACETAMINOPHEN 500 MG TABLET ONE (00:29)
[2024-03-27] MEDS: KETOROLAC TROMETHAMINE 15 MG VIAL IM ONE (00:32)
[2024-03-27] MEDS: ACETAMINOPHEN 500 MG TABLET PO ONE (00:33)
[2024-03-27 00:42] LABS: BASOPHILS # (AUTO) 0.1 K/uL (0.0-0.2); BASOPHILS % (AUTO) 0.5 % (0.0-2.0); EOSINOPHILS # (AUTO) 0.1 K/uL (0.0-0.4); EOSINOPHILS % (AUTO) 0.5 % (0.0-4.0); HEMATOCRIT 41.8 % (36-54); HEMOGLOBIN 14.4 g/dL (14.0-18.0); LYMPHOCYTES # (AUTO) 0.9 K/uL (1.0-5.5); LYMPHOCYTES % (AUTO) 8.5 % (20.5-51.5); MEAN CORPUSCULAR HEMOGLOBIN 31 pg (27-31); MEAN CORPUSCULAR HGB CONC 34 % (32-36); MEAN CORPUSCULAR VOLUME 90 fL (79.0-98.0); MONOCYTES # (AUTO) 1.5 K/uL (0.0-1.0); MONOCYTES % (AUTO) 13.5 % (1.7-9.3); NEUTROPHILS # (AUTO) 8.4 K/uL (1.8-7.7); PLATELET COUNT (AUTO) 278 K/uL (130-430); RED BLOOD CELL COUNT(AUTO) 4.65 MIL/uL (4.2-6.2); RED CELL DISTRIBUTION WIDTH 14.2 % (9.0-15.0)
[2024-03-27 01:05] LABS: ANION GAP 11 (5-15); CARBON DIOXIDE 29 mmol/L (23-29); CHLORIDE 97 mmol/L (98-107); CREATININE 1.41 mg/dL (0.55-1.30); GLUCOSE 144 mg/dL (74-106); SODIUM SERUM 137 mmol/L (136-145); UREA NITROGEN, BLOOD 21 mg/dL (8-21)
[2024-03-27] MEDS: POTASSIUM CHLORIDE 20 MEQ TABLET.ER PO ONE ×2 (01:26→11:40)
[2024-03-27] MEDS ORDERED: ACETAMINOPHEN 325 MG TABLET PO PRN (01:30)
[2024-03-27] MEDS ORDERED: HYDROcodone/ACETAMIN 5-325 MG TAB (NORCO/ VICODIN) PO PRN (01:30)
[2024-03-27] MEDS ORDERED: MORPHINE 2 MG/ML INJ. SYRINGE IVP PRN (01:30)
[2024-03-27] MEDS ORDERED: ONDANSETRON HCL 4 MG/2 ML VIAL IVP PRN (01:30)
[2024-03-27] MEDS ORDERED: ROSU5TAB13 PO (01:40)
[2024-03-27] MEDS ORDERED: GABA-331 PO (01:40)
[2024-03-27] MEDS ORDERED: CETI10CA PO (01:40)
[2024-03-27] MEDS ORDERED: PANT20TA16 PO (01:40)
[2024-03-27] MEDS ORDERED: FURO80TA3 PO (01:40)
[2024-03-27] MEDS ORDERED: CHOL125C6 PO (01:40)
[2024-03-27] MEDS ORDERED: POTA-360 PO (01:40)
[2024-03-27] MEDS ORDERED: OXYB-55 PO (01:40)
[2024-03-27] MEDS ORDERED: OXYBUTYNIN CHLORIDE 5 MG XL TAB PO SCH (07:45)
[2024-03-27] MEDS: ALLOPURINOL 100 MG TABLET (ZYLOPRIM) PO SCH (08:37)
[2024-03-27] MEDS: COLCHICINE 0.6 MG TABLET PO SCH (08:37)
[2024-03-27] MEDS ORDERED: ROSUVASTATIN CALCIUM 5 MG/TAB (CRESTOR) PO SCH (09:00)
[2024-03-27] MEDS: FLUTICASONE PROPIONATE 50 mCg/SPRAY 16 GM NS SCH (09:00)
[2024-03-27 09:13] LABS: BASOPHILS % (AUTO) 0.5 % (0.0-2.0); EOSINOPHILS # (AUTO) 0.1 K/uL (0.0-0.4); EOSINOPHILS % (AUTO) 0.9 % (0.0-4.0); HEMATOCRIT 39.4 % (36-54); HEMOGLOBIN 13.5 g/dL (14.0-18.0); LYMPHOCYTES # (AUTO) 1.1 K/uL (1.0-5.5); MEAN CORPUSCULAR HEMOGLOBIN 31 pg (27-31); MEAN CORPUSCULAR HGB CONC 34 % (32-36); MEAN CORPUSCULAR VOLUME 91 fL (79.0-98.0); MONOCYTES # (AUTO) 1.1 K/uL (0.0-1.0); MONOCYTES % (AUTO) 13.4 % (1.7-9.3); NEUTROPHILS # (AUTO) 5.6 K/uL (1.8-7.7); NEUTROPHILS % (AUTO) 71.2 % (40.0-70.0); PLATELET COUNT (AUTO) 235 K/uL (130-430); RED BLOOD CELL COUNT(AUTO) 4.32 MIL/uL (4.2-6.2); RED CELL DISTRIBUTION WIDTH 14.2 % (9.0-15.0); WHITE BLOOD COUNT (AUTO) 7.8 K/uL (4.8-10.8)
[2024-03-27 09:50] LABS: ALANINE AMINOTRANSFERASE 17 U/L (12-78); ALBUMIN 3.1 g/dL (3.4-4.8); ANION GAP 6 (5-15); ASPARTATE AMINOTRANSFERASE 15 U/L (10-37); CALCIUM 8.4 mg/dL (8.4-11.0); CARBON DIOXIDE 33 mmol/L (23-29); CHLORIDE 100 mmol/L (98-107); GLUCOSE 150 mg/dL (74-106); POTASSIUM 3.2 mmol/L (3.5-5.1); SODIUM SERUM 139 mmol/L (136-145); TOTAL BILIRUBIN 0.9 mg/dL (0.0-1.0); TOTAL PROTEIN, SERUM 6.7 g/dL (6.4-8.3); UREA NITROGEN, BLOOD 21 mg/dL (8-21)
[2024-03-27] MEDS: ATORVASTATIN 20 MG TABLET PO SCH (09:53)
[2024-03-27] MEDS: ZOSTRIX 0.025% CR TP SCH (09:53)
[2024-03-27] MEDS: RIVAROXABAN 10 MG TABLET PO SCH (09:55)
[2024-03-27] MEDS: oxyBUTYnin chloride 5 MG TABLET PO SCH (09:59)
[2024-03-27] MEDS: NACL 0.9% 1,000 ML IV SCH (12:06)
[2024-03-27] MEDS: NAPROXEN 250 MG TABLET PO ONE (12:09)
[2024-03-27] MEDS: MORPHINE 2 MG/ML INJ. SYRINGE ONE (14:35)
[2024-03-27 16:40] VITALS: BP_SYST 124; PULSE 101; RESP 18; TEMP 97
[2024-03-27] MEDS: DOCUSATE SODIUM 100 MG CAPSULE PO SCH (21:26)
[2024-03-27] MEDS: GABAPENTIN 300 MG CAPSULE PO SCH (21:27)
[2024-03-27] MEDS: NAPROXEN 250 MG TABLET PO SCH (21:28)
[2024-03-28 00:13] VITALS: BP_SYST 127; PULSE 97; RESP 17; TEMP 97.6; O2SAT 94
[2024-03-28 04:00] VITALS: BP_SYST 135; PULSE 88; RESP 20; TEMP 97.9; O2SAT 96
[2024-03-28 08:22] VITALS: BP_SYST 99; PULSE 64; RESP 19; TEMP 96.9; O2SAT 98
[2024-03-28 10:23] LABS: BASOPHILS % (AUTO) 0.5 % (0.0-2.0); EOSINOPHILS # (AUTO) 0.3 K/uL (0.0-0.4); HEMATOCRIT 36.3 % (36-54); HEMOGLOBIN 12.4 g/dL (14.0-18.0); LYMPHOCYTES # (AUTO) 0.7 K/uL (1.0-5.5); LYMPHOCYTES % (AUTO) 11.4 % (20.5-51.5); MEAN CORPUSCULAR HEMOGLOBIN 31 pg (27-31); MEAN CORPUSCULAR HGB CONC 34 % (32-36); MEAN CORPUSCULAR VOLUME 91 fL (79.0-98.0); MONOCYTES # (AUTO) 0.9 K/uL (0.0-1.0); MONOCYTES % (AUTO) 13.6 % (1.7-9.3); NEUTROPHILS # (AUTO) 4.5 K/uL (1.8-7.7); NEUTROPHILS % (AUTO) 70.5 % (40.0-70.0); PLATELET COUNT (AUTO) 212 K/uL (130-430); RED BLOOD CELL COUNT(AUTO) 3.98 MIL/uL (4.2-6.2); RED CELL DISTRIBUTION WIDTH 14.3 % (9.0-15.0); WHITE BLOOD COUNT (AUTO) 6.4 K/uL (4.8-10.8)
[2024-03-28 10:51] LABS: ALANINE AMINOTRANSFERASE 13 U/L (12-78); ALBUMIN 2.7 g/dL (3.4-4.8); ANION GAP 8 (5-15); ASPARTATE AMINOTRANSFERASE 12 U/L (10-37); CALCIUM 8.5 mg/dL (8.4-11.0); CARBON DIOXIDE 30 mmol/L (23-29); CHLORIDE 107 mmol/L (98-107); CREATININE 1.02 mg/dL (0.55-1.30); GLUCOSE 108 mg/dL (74-106); POTASSIUM 3.5 mmol/L (3.5-5.1); SODIUM SERUM 145 mmol/L (136-145); TOTAL BILIRUBIN 0.7 mg/dL (0.0-1.0); TOTAL PROTEIN, SERUM 5.8 g/dL (6.4-8.3); UREA NITROGEN, BLOOD 17 mg/dL (8-21)
[2024-03-28 12:20] VITALS: BP_SYST 119; PULSE 72; RESP 20; TEMP 97.4; O2SAT 97
[2024-03-28 16:34] VITALS: BP_SYST 109; PULSE 68; RESP 19; TEMP 97; O2SAT 98
[2024-03-28 20:00] VITALS: BP_SYST 111; PULSE 62; RESP 18; TEMP 97; O2SAT 94
[2024-03-29 01:20] VITALS: BP_SYST 115; PULSE 86; RESP 18; TEMP 96.4; O2SAT 97
[2024-03-29 08:00] VITALS: BP_SYST 118; PULSE 88; RESP 16; TEMP 97.2; O2SAT 96
[2024-03-29 12:42] VITALS: BP_SYST 117; PULSE 87; RESP 17; TEMP 97; O2SAT 97
[2024-03-29 14:47] VITALS: BP_SYST 115; PULSE 65; RESP 16; TEMP 97.5; O2SAT 97
== END 2024-03-30 04:38 | disposition home health service (06) ==
LOC: SED 21:05 → SMU 03-27 01:27 → INTOOBSV 03-27 01:27 → SMU 03-27 15:37
PROVIDERS: ADMIT Internal Medicine; ATTEND Internal Medicine
DX: M25.572 Pain in left ankle and joints of left foot (principal); G62.9 Polyneuropathy, unspecified; E78.5 Hyperlipidemia, unspecified; M10.9 Gout, unspecified; N17.9 Acute kidney failure, unspecified; E66.9 Obesity, unspecified; I10 Essential (primary) hypertension; M85.80 Other specified disorders of bone density and structure, unspecified site; M76.62 Achilles tendinitis, left leg; E87.6 Hypokalemia; I87.8 Other specified disorders of veins; F17.200 Nicotine dependence, unspecified, uncomplicated; Z79.899 Other long term (current) drug therapy; Z88.1 Allergy status to other antibiotic agents; Z85.828 Personal history of other malignant neoplasm of skin; Z87.440 Personal history of urinary (tract) infections
CPT/HCPCS: 96360; 96361 ×2; 96372; 80053 ×2; 80048; 85025 ×2; 36415 ×2; 73630; 99285; 97530; 97116; 97162; 82306; J1885; J2270; G0378 ×3